=== PATIENT | female | born 1995 | race Caucasian/White ===

== ENCOUNTER 2020-01-15 20:17 | Emergency (ER) | payer SELFPAY ==
[~2020-01-15] VITALS: Ht 170.1 cm; Wt 71.2 kg
--- NOTE | 2020-01-15 20:32 | ED EENT ---
History of Present Illness General Stated Complaint: JAW LOCKED Source: patient, family History of Present Illness Date Seen by Provider: Jan 15, 2020 Time Seen by Provider: 20:23 Initial Comments 24-year-old female presents with a jaw dislocation. Patient has had recurrent jaw dislocation. Patient last ate around 6:30. She did have a Erika. Patient has no injury that causes acutely. Patient has no issues with allergies or anesthesia. Prearrival Treatment: no prearrival treatment Allergies and Home Medications Allergies Coded Allergies: No Known Drug Allergies (Unverified , 01/15/20) Patient Home Medication List Home Medication List Reviewed: Yes Review of Systems Review of Systems Constitutional: no symptoms reported Eyes: No Symptoms Reported Mouth: see HPI Throat: no symptoms reported Respiratory: no symptoms reported Cardiovascular: no symptoms reported Gastrointestinal: no symptoms reported : No Past Xkesfni-Rblemb-Hjlobu Hx Past Med/Social Hx: Reviewed Nursing Past Med/Soc Hx Patient Social History Recent Foreign Travel: No Contact w/Someone Who Travel: No Physical Exam Height, Weight, BMI Height: '" Weight: lbs. oz. kg; BMI Method: General Appearance: no apparent distress Mouth/Throat: other (patient with obvious jaw dislocation) Neck: supple Cardiovascular: normal peripheral pulses, regular rate, rhythm Respiratory: chest non-tender, lungs clear, normal breath sounds, no respiratory distress Gastrointestinal: non tender, soft Neurologic/Psychiatric: alert, normal mood/affect, oriented x 3 Skin: normal color, warm/dry Procedures/Interventions Patient Education: Explained Benefits Agreement on procedure with pt: Yes Breath Sounds per Auscultation: Clear Heart Sounds per Auscultation: Regular Airway Exam: Mouth opens >2 fingers, Neck Full Range of Motion, Visulation of Uvula Splinting and Joint Reduction : Pre-Proc Neuro Vasc Exam: normal Post-Proc Neuro Vasc Exam: normal Progress Jaw reduction Pre-Procedure NV Exam: Yes post joint reduction film: joint reduced Progress Patient tolerated procedure well. A c-collar was placed to help hold her jaw. Cervical Collars: [place]-Adult Progress/Results/Core Measures Results/Orders My Orders Orders - OWEN ARELLANO DO Ketamine Syringe (Ed Only) (Ketamine Syr (01/15/20 20:45) Conscious Sedation (01/15/20 20:33) Monitor-Rhythm Ecg Trace Only (01/15/20 20:33) Ed Iv/Invasive Line Start (01/15/20 20:33) Vital Signs-Conscious Sedation (01/15/20 20:33) Ketamine Syringe (Ed Only) (Ketamine Syr (01/15/20 20:45) Ed Iv/Invasive Line Start (01/15/20 20:34) Ns Iv 500 Ml (Sodium Chloride 0.9%) (01/15/20 20:38) Lorazepam Injection (Ativan Injection) (01/15/20 21:00) Lorazepam Injection (Ativan Injection) (01/15/20 20:49) Medications Given in ED Current Medications Medications Dose Ordered Sig/Ayaka Route Start Time Stop Time Status Last Admin Dose Admin Ketamine HCl 50 mg ONCE ONCE IV 01/15/20 20:45 01/15/20 20:46 DC 01/15/20 20:47 50 MG Lorazepam 0.5 mg ONCE ONCE IVP 01/15/20 21:00 01/15/20 21:01 01/15/20 20:54 0.5 MG Progress Progress Note : Time: 20:56 Progress Note Patient tolerated procedure well. No difficulties with reduction of jaw. Patient placed in c-collar as requested prior since he said that help it stay and is more comfortable than a wrap. Patient tolerated conscious sedation with no difficulty. She will be discharged home in stable condition in a c-collar. Departure Impression Primary Impression: Dislocation, jaw, open Qualified Codes: S03.00XA - Dislocation of jaw, unspecified side, initial encounter; S01.80XA - Unspecified open wound of other part of head, initial encounter Disposition: HOME, SELF-CARE Condition: Stable Departure-Patient Inst. Patient Instructions: Dislocated Jaw, Dislocated Jaw (DC) Add. Discharge Instructions: please where c collar until seen by ent.. Follow up with ENT neck week OWEN ARELLANO DO Jan 15, 2020 20:32
[2020-01-15] MEDS ORDERED: NS IV 500 ML 500 ML ONE (20:38)
[2020-01-15] MEDS ORDERED: KETAMINE/NaCl 50 MG/5 ML SYRINGE (ED ONLY) IV ONE ×2 (20:45)
[2020-01-15] MEDS ORDERED: LORazepam INJ 2 MG/ML (ATIVAN) VIAL ONE (20:49)
[2020-01-15] MEDS ORDERED: LORazepam INJ 2 MG/ML (ATIVAN) VIAL IVP ONE (21:00)
[2020-01-15 21:32] VITALS: BP 130/71
--- OUTSIDE RECORDS SUMMARY | 2020-01-17 15:46 | XMS REPORT | Continuity of Care Document ---
Author Organization Unknown Address Unknown Phone Unavailable Allergies There is no data. Medications There is no data. Problems There is no data. Procedures There is no data. Results Test Result Range SUREPATH PAP RFX HPV mRNA E6/E7 - 09:38 CLINICAL INFORMATION: NRG LMP: 10/03/2017 NRG PREV. PAP: NRG PREV. BX: NRG SOURCE: NRG STATEMENT OF ADEQUACY: NRG INTERPRETATION/RESULT: NRG HAUL DRIVER: NRG COMMENT NRG Encounters ACCT No. Visit Date/Time Discharge Status Pt. Type Provider Facility Loc./Unit Complaint [id number] 05/05/2019 09:00:00 05/05/2019 23:59: 59 [facility] Outpatient KELSEY YATES L[facility] [place] [facility] [id number] 05/05/2019 09:00:00 Document Registration
--- OUTSIDE RECORDS SUMMARY | 2020-01-17 15:46 | XMS REPORT ---
Author Author Davy MILLER [facility] Address [address] [place] [address] Care Team Providers Care Carton Machine Operator Name Role Phone DELANEY MILLER Unavailable PROBLEMS Type Condition ICD9-CM Code IHO10-UW Code Onset Dates Condition S tatus SNOMED Code Problem External hemorrhoid K64.4 Apr, 0 05703000 Problem Chronic diarrhea K52.9 Jan, 0 873393269 Problem Chronic diarrhea 787.91 Jan, 0 901433666 Problem Routine follow-up V24.2 Aug, 8 0 855009258 Problem Routine follow-up Z39.2 Aug, 8 0 412665636 Problem Abdominal cramping R10.9 Jan, 0 81137433 Problem Abdominal cramping 789.00 Jan, 0 64172747 Problem External hemorrhoid 455.3 Apr, 0 08805680 ALLERGIES No Information ENCOUNTERS Encounter Location Date Diagnosis [address] [id number] May, [address] [address] Feb, Encounter for Depo-Provera contraception Z30.[address] [address] Jan, [facility] [address] [facility] [id number] [address] [place] [id number] Oct, [facility] [address] [facility] [id number] [address] [place] [id number] Aug, [facility] [address] [facility] [id number] [address] [place] [id number] Jul, [facility] [address] [facility] [id number] [address] [place] [phone] March, IMMUNIZATIONS No Known Immunizations SOCIAL HISTORY Never Assessed REASON FOR VISIT Request return call PLAN OF CARE VITAL SIGNS MEDICATIONS Unknown Medications RESULTS No Results PROCEDURES No Known procedures INSTRUCTIONS MEDICATIONS ADMINISTERED No Known Medications
== END 2020-01-15 21:32 | disposition home or self-care (01) ==
LOC: ER FS 20:19
DX: S03.00XA Dislocation of jaw, unspecified side, initial encounter (principal); S01.80XA Unspecified open wound of other part of head, initial encounter; X58.XXXA Exposure to other specified factors, initial encounter
CPT/HCPCS: 93041

== ENCOUNTER → 2020-06-09 | Outpatient (CLI) | payer MEDICAID ==
--- NOTE | 2020-06-09 18:54 | Diagnostic Imaging Report ---
INDICATION: Dislocation of right temporomandibular joint 2 weeks ago. COMPARISON: None TECHNIQUE: 3 views of the facial bones FINDINGS: Alignment of the mandible appears normal. No fracture is seen in the imaged facial bones. No fluid levels are seen in the maxillary sinuses. Please note that CT would be more sensitive to evaluate for facial fractures. IMPRESSION: 1. No fracture or malalignment seen in the facial bones. Dictated by: Dictated on workstation # [id number]
== END ==
LOC: RAD FS 17:53
PROVIDERS: ATTEND Nurse Practitioner
DX: S03.00XA Dislocation of jaw, unspecified side, initial encounter (principal); X58.XXXA Exposure to other specified factors, initial encounter
CPT/HCPCS: 70150

== ENCOUNTER → 2020-11-30 | Outpatient (CLI) | payer MEDICAID ==
[2020-11-30 11:51] LABS: WHITE BLOOD COUNT 10.2 10^3/uL (4.3-11.0)
[2020-11-30 11:52] LABS: BASOPHILS # (AUTO) 0.1 10^3/uL (0.0-0.1); BASOPHILS % (AUTO) 1 % (0-10); EOSINOPHILS # (AUTO) 0.1 10^3/uL (0.0-0.3); EOSINOPHILS % (AUTO) 1 % (0-10); HEMATOCRIT 38 % (35-52); HEMOGLOBIN 12.9 G/DL (11.5-16.0); LYMPHOCYTES # (AUTO) 1.7 X 10^3 (1.0-4.0); LYMPHOCYTES % (AUTO) 16 % (12-44); MEAN CORPUSCULAR HEMOGLOBIN 30 PG (25-34); MEAN CORPUSCULAR HGB CONC 34 G/DL (32-36); MEAN CORPUSCULAR VOLUME 90 FL (80-99); MEAN PLATELET VOLUME 9.3 FL (7.4-10.4); MONOCYTES # (AUTO) 0.7 X 10^3 (0.0-1.0); MONOCYTES % (AUTO) 7 % (0-12); NEUTROPHILS # (AUTO) 7.7 X 10^3 (1.8-7.8); NEUTROPHILS % (AUTO) 75 % (42-75); PLATELET COUNT 284 10^3/uL (130-400)
== END ==
LOC: LAB FS 11:05
PROVIDERS: ATTEND Family Medicine
DX: Z34.81 Encounter for supervision of other normal pregnancy, first trimester (principal); Z3A.00 Weeks of gestation of pregnancy not specified
CPT/HCPCS: 36415; 85025; 86703; 86762; 86780; 86850; 86900; 86901; 87077; 87088; 87340

== ENCOUNTER → 2021-01-24 | Outpatient (CLI) | payer MEDICAID ==
[2021-01-24 15:49] LABS: AMPHETAMINE SCREEN, URINE NEGATIVE (NEGATIVE); BENZODIAZEPINES SCREEN URINE NEGATIVE (NEGATIVE); CANNABINOID SCREEN, URINE POSITIVE (NEGATIVE); COCAINE SCREEN URINE NEGATIVE (NEGATIVE); METHAMPHETAMINE SCREEN URINE S NEGATIVE (NEGATIVE); OPIATE SCREEN URINE NEGATIVE (NEGATIVE)
[2021-01-24 15:50] LABS: BARBITURATE SCREEN URINE NEGATIVE (NEGATIVE); METHADONE STAT NEGATIVE (NEGATIVE); OXYCODONE STAT NEGATIVE (NEGATIVE); PROPOXYPHENE STAT NEGATIVE (NEGATIVE); TRICYCLIC ANTIDEPRESSANTS SCRE NEGATIVE (NEGATIVE)
== END ==
LOC: LAB FS 15:16
PROVIDERS: ATTEND Family Medicine
DX: Z34.81 Encounter for supervision of other normal pregnancy, first trimester (principal); Z3A.00 Weeks of gestation of pregnancy not specified
CPT/HCPCS: 36415; 80306; 82105; 82677; 84702; 86336

== ENCOUNTER 2021-01-29 11:45 | Emergency (ER) | payer MEDICAID ==
[~2021-01-29] VITALS: Ht 170.1 cm; Wt 71.2 kg
[2021-01-29 12:42] LABS: BACTERIA,URINE TRACE /HPF; BILIRUBIN,URINE NEGATIVE (NEGATIVE); CLARITY,URINE CLEAR; COLOR,URINE YELLOW; GLUCOSE, URINE (UA) NEGATIVE (NEGATIVE); KETONES,URINE NEGATIVE (NEGATIVE); LEUKOCYTE ESTERASE ,URINE NEGATIVE (NEGATIVE); NITRITE,URINE NEGATIVE (NEGATIVE); PROTEIN,URINE NEGATIVE (NEGATIVE); RBC,URINE 0-2 /HPF
[2021-01-29] MEDS ORDERED: NS IV 1000 ML 1,000 ML IV SCH (12:45)
[2021-01-29 13:03] LABS: HEMOGLOBIN 12.4 G/DL (11.5-16.0); MEAN PLATELET VOLUME 9.1 FL (7.4-10.4); WHITE BLOOD COUNT 9.8 10^3/uL (4.3-11.0)
[2021-01-29 13:23] LABS: CARBON DIOXIDE 24 MMOL/L (21-32); CHLORIDE 103 MMOL/L (98-107); SODIUM 137 MMOL/L (135-145)
[2021-01-29 13:24] LABS: ALANINE AMINOTRANSFERASE 11 U/L (0-55); ALKALINE PHOSPHATASE 59 U/L (40-136); BILIRUBIN,TOTAL 0.5 MG/DL (0.1-1.0); BUN/CREATININE RATIO 16; CALCIUM 9.3 MG/DL (8.5-10.1); CREATININE SERUM 0.69 MG/DL (0.60-1.30); GFR ESTIMATED > 60; GLUCOSE 84 MG/DL (70-105); TOTAL PROTEIN 6.8 GM/DL (6.4-8.2)
--- NOTE | 2021-01-29 13:37 | ED Syncope ---
General Chief Complaint: Dizziness/Syncope Stated Complaint: CRAMPING | LIGHT-HEADED | DIZZY Source of Information: Patient History of Present Illness Date Seen by Provider: Jan 29, 2021 Time Seen by Provider: 12:30 Initial Comments Patient is a 25-year-old, G4, P2, Ab1 female who is 18 weeks gestation today who presents with near syncope while at work. Patient reports low blood pressure throughout . 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 Symptoms have since recovered. Blood sugar is 72. Patient does have history of hypoglycemia and a prior to driving to the emergency department. She denies headache, chest pain palpitations, nausea vomiting, abdominal pain, pelvic pain or cramping. No urinary frequency urgency or dysuria. No flank pain. No vaginal bleeding or fluid leakage. No other acute symptoms or complaints Timing/Prior Episodes: No Prior History Symptoms Prior to Episode: Other Precipitating Factors: Other Loss of Consciousness: Dazed Current Symptoms: Other Allergies and Home Medications Allergies Coded Allergies: No Known Drug Allergies (Unverified , 01/15/20) Patient Home Medication List Home Medication List Reviewed: Yes Review of Systems Constitutional: see HPI Respiratory: see HPI Cardiovascular: see HPI Gastrointestinal: see HPI Genitourinary: see HPI Musculoskeletal: see HPI Skin: see HPI Psychiatric/Neurological: See HPI All Other Systems Reviewed Negative Unless Noted: Yes Past Fydzvdq-Nchxku-Qqnwev Hx Past Med/Social Hx: Reviewed Nursing Past Med/Soc Hx Seasonal Allergies Seasonal Allergies: No Past Medical History Surgeries: No Respiratory: No Cardiac: No Neurological: No Genitourinary: No Gastrointestinal: No Musculoskeletal: Yes (Jaw Dislocation) Endocrine: No HEENT: No Cancer: No Psychosocial: No Integumentary: No Physical Exam Vital Signs Capillary Refill : Height, Weight, BMI Height: '" Weight: lbs. oz. kg; 24.00 BMI Method: General Appearance: No Apparent Distress, WD/WN HEENT: PERRL/EOMI, Normal ENT Inspection, Pharynx Normal Neck: Full Range of Motion, Normal Inspection Cardiovascular: Regular Rate, Rhythm Respiratory: Chest Non Tender, Lungs Clear Neurologic/Psychiatric: Alert, Oriented x3, No Motor/Sensory Deficits, rolled glass crosscutter II- XII Norm as Tested Cranial Nerves: Abnormal Eye Position Coordination/Gait: Normal Gait Focused Exam Sepsis Stage: Ruled Out Procedures/Interventions Patient Education: Explained Benefits Breath Sounds per Auscultation: Clear Heart Sounds per Auscultation: Regular Airway Exam: Mouth opens >2 fingers, Neck Full Range of Motion, Visulation of Uvula Progress/Results/Core Measures Results/Orders Lab Results Laboratory Tests Test 01/29/21 12:00 01/29/21 12:11 01/29/21 12:58 Range/Units Urine Color YELLOW Urine Clarity CLEAR Urine pH 7.0 5-9 Urine Specific [place] 1.0010 1.016-1.022 Urine Protein NEGATIVE NEGATIVE Urine Glucose (UA) NEGATIVE NEGATIVE Urine Ketones NEGATIVE NEGATIVE Urine Nitrite NEGATIVE NEGATIVE Urine Bilirubin NEGATIVE NEGATIVE Urine Urobilinogen 0.2 < = 1.0 MG/DL Urine Leukocyte Esterase NEGATIVE NEGATIVE Urine RBC (Auto) TRACE-I NEGATIVE Urine RBC 0-2 /HPF Urine WBC NONE /HPF Urine Squamous Epithelial Cells 2-5 /HPF Urine Crystals NONE /LPF Urine Bacteria TRACE /HPF Urine Casts NONE /LPF Urine Mucus SMALL H /LPF Urine Culture Indicated NO Glucometer 72 70-110 MG/DL White Blood Count 9.8 4.3-11.0 10^3/uL Red Blood Count 4.05 L 4.35-5.85 10^6/uL Hemoglobin 12.4 11.5-16.0 G/DL Hematocrit 37 35-52 % Mean Corpuscular Volume 90 80-99 FL Mean Corpuscular Hemoglobin 31 25-34 PG Mean Corpuscular Hemoglobin Concent 34 32-36 G/DL Red Cell Distribution Width 12.6 10.0-14.5 % Platelet Count 261 130-400 10^3/uL Mean Platelet Volume 9.1 7.4-10.4 FL Sodium Level 137 135-145 MMOL/L Potassium Level 4.0 3.6-5.0 MMOL/L Chloride Level 103 98-107 MMOL/L Carbon Dioxide Level 24 21-32 MMOL/L Anion Gap 10 5-14 MMOL/L Blood Urea Nitrogen 11 7-18 MG/DL Creatinine 0.69 0.60-1.30 MG/DL Estimat Glomerular Filtration Rate > 60 BUN/Creatinine Ratio 16 Glucose Level 84 70-105 MG/DL Calcium Level 9.3 8.5-10.1 MG/DL Corrected Calcium 9.3 8.5-10.1 MG/DL Total Bilirubin 0.5 0.1-1.0 MG/DL Aspartate Amino Transf (AST/SGOT) 14 5-34 U/L Alanine Aminotransferase (ALT/SGPT) 11 0-55 U/L Alkaline Phosphatase 59 40-136 U/L Total Protein 6.8 6.4-8.2 GM/DL Albumin 4.0 3.2-4.5 GM/DL My Orders Orders - TIMMY BULL DO Cbc No Diff (01/29/21 12:39) Comprehensive Metabolic Panel (01/29/21 12:39) Ekg-Prn For Chest Pain Or Rhyt (01/29/21 12:39) Heart Tones (01/29/21 12:39) Urinalysis (01/29/21 12:39) Ns Iv 1000 Ml (Sodium Chloride 0.9%) (01/29/21 12:45) Departure Communication (Admissions) EKG, labs reviewed. No acute findings. heart tones 140s. IV fluids given. Patient tolerates oral intake. Symptoms improved. Suspect hypertensive state with orthostasis secondary to . Patient is comfortable with discharge home. Impression Primary Impression: Dizziness Additional Impressions: Orthostatic dizziness Second trimester Disposition: 01 HOME, SELF-CARE Condition: Stable Departure-Patient Inst. Referrals: CHANDRAKANT LUGO MD (PCP/Family) Primary Care Physician Patient Instructions: Orthostatic Hypotension (DC) Add. Discharge Instructions: Please stay home and rest. Increase fluids and follow-up with your SHEET ROCK SANDER as scheduled. Return to the ED if new or worsening symptoms. All discharge instructions reviewed with patient and/or family. Voiced understanding. Work/School Note: Work Release Form Date Seen in the Emergency Department: Jan 29, 2021 Return to Work: Jan 31, 2021 Restrictions: No Restrictions TIMMY BULL DO Jan 29, 2021 13:37
[2021-01-29 13:59] VITALS: BP 126/71
== END 2021-01-29 13:59 | disposition home or self-care (01) ==
LOC: EDUNIT# 11:45 → ER FS 11:47
DX: O26.52 Maternal hypotension syndrome, second trimester (principal); Z3A.18 18 weeks gestation of pregnancy
CPT/HCPCS: 36415; 80053; 81000; 82962; 85027

== ENCOUNTER → 2021-02-13 | Outpatient (CLI) | payer MEDICAID ==
--- NOTE | 2021-02-13 10:28 | Diagnostic Imaging Report ---
INDICATION: survey. TECHNIQUE: Multiple real-time grayscale images were obtained over the gravid uterus. COMPARISON: None FINDINGS: There is a single live fetus in a cephalic presentation. heart rate was recorded at 140 bpm. Placenta is posterior. No previa is seen. Amniotic fluid volume is normal. Cervical length is 3.7 cm. kidneys, bladder and stomach are unremarkable. brain is unremarkable. There is a 4 chamber heart. There is a 3 vessel cord and normal insertion. spine is unremarkable. Biometrical measurements are as follows: Biparietal 4.92 cm, age 21 weeks 0 days. Head circumference 17.74 cm, age 20 weeks 2 days. Abdominal circumference 14.71 cm, age 20 weeks 0 days. Femur length 3.19 cm, age 20 weeks 0 days. Sonographic estimate age: 20 weeks 3 days. Sonographic estimated date of delivery: 06/30/2021. Estimated Weight: 327 gm (+/- 48 gm). LMP percentile: 39%. heart rate: 140 beats per minute. number: 1 of 1. IMPRESSION: Single live IUP 20 weeks 3 days gestational age. Estimated date of confinement sonographic is 06/30/2021. Dictated by: Dictated on workstation # [id number]
== END ==
LOC: RAD FS 08:50
PROVIDERS: ATTEND Family Medicine
DX: Z34.82 Encounter for supervision of other normal pregnancy, second trimester (principal); Z3A.20 20 weeks gestation of pregnancy
CPT/HCPCS: 76805

== ENCOUNTER → 2021-03-21 | Outpatient (CLI) | payer MEDICAID | LOC: LABNPT 14:53 | PROVIDERS: ATTEND Family Medicine | DX: R10.2 Pelvic and perineal pain (principal) | CPT/HCPCS: 87210; 87491; 87591 ==

== ENCOUNTER → 2021-04-07 | Outpatient (CLI) | payer MEDICAID | LOC: LABNPT 16:02 | PROVIDERS: ATTEND Family Medicine | DX: N89.8 Other specified noninflammatory disorders of vagina (principal) | CPT/HCPCS: 87210; 87491; 87591 ==

== ENCOUNTER → 2021-04-07 | Outpatient (CLI) | payer MEDICAID ==
[2021-04-07 09:53] LABS: HEMOGLOBIN 11.5 G/DL (11.5-16.0); MEAN CORPUSCULAR HEMOGLOBIN 32 PG (25-34); WHITE BLOOD COUNT 8.2 10^3/uL (4.3-11.0)
[2021-04-07 09:54] LABS: BASOPHILS % (AUTO) 0 % (0-10); EOSINOPHILS # (AUTO) 0.1 10^3/uL (0.0-0.3); EOSINOPHILS % (AUTO) 1 % (0-10); HEMATOCRIT 35 % (35-52); LYMPHOCYTES # (AUTO) 1.2 X 10^3 (1.0-4.0); LYMPHOCYTES % (AUTO) 15 % (12-44); MEAN CORPUSCULAR HGB CONC 33 G/DL (32-36); MEAN CORPUSCULAR VOLUME 95 FL (80-99); MEAN PLATELET VOLUME 9.6 FL (7.4-10.4); MONOCYTES # (AUTO) 0.6 X 10^3 (0.0-1.0); MONOCYTES % (AUTO) 7 % (0-12); NEUTROPHILS # (AUTO) 6.3 X 10^3 (1.8-7.8); NEUTROPHILS % (AUTO) 77 % (42-75); PLATELET COUNT 219 10^3/uL (130-400)
== END ==
LOC: LAB FS 09:18
PROVIDERS: ATTEND Family Medicine
DX: Z34.81 Encounter for supervision of other normal pregnancy, first trimester (principal); Z3A.00 Weeks of gestation of pregnancy not specified
CPT/HCPCS: 36415; 82950; 85025; 86592

== ENCOUNTER 2021-05-01 17:23 | Observation (INO) | payer MEDICAID ==
[~2021-05-01] VITALS: Ht 170.2 cm; Wt 82.6 kg
[2021-05-01 17:52] VITALS: BP 127/69
[2021-05-01] MEDS ORDERED: PREN-37 PO (17:57)
[2021-05-01] MEDS ORDERED: VALA500T4 PO (17:58)
[2021-05-01 19:41] VITALS: BP 126/66
[2021-05-01] MEDS ORDERED: NS IV 1000 ML 1,000 ML ONE (20:18)
[2021-05-01] MEDS ORDERED: BETAMETHASONE ACE/NA PHOS 6 MG/ML (CELESTONE SOLUSPAN) ONE (20:38)
[2021-05-01] MEDS ORDERED: D5 LR IV SOLUTION 1,000 ML IV ONE (20:38)
[2021-05-01] MEDS ORDERED: NS IV 1000 ML 1,000 ML IV SCH (20:45)
[2021-05-01] MEDS: D5 LR IV SOLUTION 1,000 ML IV SCH (22:24)
[2021-05-02 00:22] VITALS: BP 120/72
[2021-05-02] MEDS: D5 LR IV SOLUTION 1,000 ML IV SCH (06:18)
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
--- NOTE | 2021-05-02 09:44 | Diagnostic Imaging Report ---
TIME OF STUDY: 05/02/2021 8:59 AM INDICATION: Abdominal trauma. Evaluate for abruption. COMPARISON: 02/13/2021 TECHNIQUE: Transabdominal sonogram was performed. GESTATIONAL AGE: 31 weeks, 2 days GENERAL EVALUATION: Presentation: Cephalic Placenta: Posterior and not low lying. No findings to suggest abruption. Cardiac activity: 125 bpm Amniotic fluid index: The total VERNELL is 13.3 cm. The largest vertical pocket measures 7.0 cm. Views of the adnexa demonstrate no acute abnormalities. BIOPHYSICAL PROFILE SCORING: tone: 2 movement: 2 breathin Amniotic fluid: 2 TOTAL SCORE: 6 out of 8 FINDINGS/ IMPRESSION: 1. Single live intrauterine gestation with biophysical profile score of 6 out of 8, with 0 points given for breathing movements. The fetus was noted taking small breaths of air without episodes lasting greater than 30 seconds. 2. No sonographic evidence of placental abruption. Dictated by: Dictated on workstation # [id number]
[2021-05-02 10:40] VITALS: BP 110/57
[2021-05-02] MEDS ORDERED: BETAMETHASONE ACE/NA PHOS 6 MG/ML (CELESTONE SOLUSPAN) IM SCH (21:00)
== END 2021-05-02 11:02 | disposition home or self-care (01) ==
LOC: WSo 17:23 → LDRP 17:23 → WSo 05-02 09:43 → LDRP 05-02 09:43 → UNDOADMOB 05-02 09:44 → WSo 05-02 11:02 → UNDODISOB 05-02 11:02 → EDSTATUS 05-10 16:23
PROVIDERS: ADMIT Obstetrics & Gynecology; ATTEND Obstetrics & Gynecology
DX: O9A.213 Injury, poisoning and certain other consequences of external causes complicating pregnancy, third trimester (principal); S39.91XA Unspecified injury of abdomen, initial encounter; Z3A.31 31 weeks gestation of pregnancy; W03.XXXA Other fall on same level due to collision with another person, initial encounter; Z79.899 Other long term (current) drug therapy
CPT/HCPCS: 76819; 86850; 86900; 86901; 96360; 96361 ×2; 96372; G0378; G0379; 99211

== ENCOUNTER 2021-05-02 19:55 | Outpatient (CLI) | payer MEDICAID ==
[~2021-05-02 19:55] MED LIST: PREN-37 PO; VALA500T4 PO
[2021-05-02] MEDS ORDERED: BETAMETHASONE ACE/NA PHOS 6 MG/ML (CELESTONE SOLUSPAN) ONE (20:09)
[2021-05-02] MEDS ORDERED: BETAMETHASONE ACE/NA PHOS 6 MG/ML (CELESTONE SOLUSPAN) IM SCH (20:15)
--- NOTE | 2021-05-03 07:40 | Physician Query-Final Dx ---
SUNIL GRANADOS 05/03/21 0740: Clinic Account Progress/Dx Physician Query: Please give diagnosis Please include # weeks gestation Date of Service May 02, 2021 at 19:55 CA LEON DO 05/03/21 1315: Clinic Account Progress/Dx DIAGNOSIS: Diagnosis 26 yo @ 31 weeks Trauma to abdomen in Irregular contractions- resolved Rh+ SUNIL GRANADOS May 03, 2021 07:40 CA LEON DO May 03, 2021 13:15
== END 2021-05-02 20:20 ==
LOC: WSo 19:55 → LDRP 19:58 → WSo 20:20
PROVIDERS: ATTEND Obstetrics & Gynecology
DX: O60.03 Preterm labor without delivery, third trimester (principal); O9A.213 Injury, poisoning and certain other consequences of external causes complicating pregnancy, third trimester; O62.9 Abnormality of forces of labor, unspecified; Z3A.31 31 weeks gestation of pregnancy
CPT/HCPCS: 96372

== ENCOUNTER 2021-09-29 16:35 | Emergency (ER) | payer MEDICAID ==
[~2021-09-29] VITALS: Ht 170.2 cm; Wt 74.0 kg
[2021-09-29 16:50] VITALS: BP 123/60
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
== END 2021-09-29 16:57 | disposition home or self-care (01) ==
LOC: EDUNIT# 16:35 → ER FS 16:36
DX: S00.03XA Contusion of scalp, initial encounter (principal); S00.83XA Contusion of other part of head, initial encounter; S50.311A Abrasion of right elbow, initial encounter; S09.90XA Unspecified injury of head, initial encounter; T74.11XA Adult physical abuse, confirmed, initial encounter; R40.2410 Glasgow coma scale score 13-15, unspecified time; Y04.2XXA Assault by strike against or bumped into by another person, initial encounter
CPT/HCPCS: 99281

== ENCOUNTER → 2022-03-05 | Outpatient (CLI) | payer MEDICAID | LOC: LABNPT 15:04 | PROVIDERS: ATTEND Registered Nurse Emergency | DX: J30.2 Other seasonal allergic rhinitis (principal) | CPT/HCPCS: 87070 ==

== ENCOUNTER → 2022-03-19 | Outpatient (CLI) | payer MEDICAID | LOC: LABNPT 16:19 | PROVIDERS: ATTEND Family Medicine | DX: R42 Dizziness and giddiness (principal); R25.1 Tremor, unspecified | CPT/HCPCS: 87088 ==

== ENCOUNTER → 2022-03-20 | Outpatient (CLI) | payer MEDICAID ==
[2022-03-20 13:45] LABS: BASOPHILS # (AUTO) 0.1 10^3/uL (0.0-0.1); BASOPHILS % (AUTO) 1 % (0-10); EOSINOPHILS # (AUTO) 0.1 10^3/uL (0.0-0.3); EOSINOPHILS % (AUTO) 2 % (0-10); HEMATOCRIT 43 % (35-52); HEMOGLOBIN 14.3 g/dL (11.5-16.0); LYMPHOCYTES # (AUTO) 2.5 10^3/uL (1.0-4.0); LYMPHOCYTES % (AUTO) 30 % (12-44); MEAN CORPUSCULAR HEMOGLOBIN 30 pg (25-34); MEAN CORPUSCULAR HGB CONC 34 g/dL (32-36); MEAN CORPUSCULAR VOLUME 89 fL (80-99); MEAN PLATELET VOLUME 9.1 fL (9.0-12.2); MONOCYTES # (AUTO) 0.5 10^3/uL (0.0-1.0); MONOCYTES % (AUTO) 6 % (0-12); NEUTROPHILS # (AUTO) 5.2 10^3/uL (1.8-7.8); NEUTROPHILS % (AUTO) 62 % (42-75); PLATELET COUNT 215 10^3/uL (130-400); WHITE BLOOD COUNT 8.5 10^3/uL (4.3-11.0)
[2022-03-20 14:30] LABS: ALBUMIN 4.4 GM/DL (3.2-4.5); BILIRUBIN,TOTAL 1.4 MG/DL (0.1-1.0); CALCIUM 9.2 MG/DL (8.5-10.1); CREATININE SERUM 0.86 MG/DL (0.60-1.30); POTASSIUM 4.1 MMOL/L (3.6-5.0); TOTAL PROTEIN 7.2 GM/DL (6.4-8.2)
[2022-03-21 04:44] LABS: FREE T4 (FREE THYROXINE) 0.97 NG/DL (0.70-1.48)
== END ==
LOC: LAB FS 13:22
PROVIDERS: ATTEND Family Medicine
DX: R42 Dizziness and giddiness (principal); R25.1 Tremor, unspecified
CPT/HCPCS: 36415; 80053; 84439; 84443; 85025

== ENCOUNTER → 2022-03-26 | Outpatient (CLI) | payer MEDICAID ==
--- NOTE | 2022-03-26 07:56 | Diagnostic Imaging Report ---
PROCEDURE: US Hepatic (Liver). TECHNIQUE: Multiple real-time grayscale images were obtained over the right upper quadrant in various projections. INDICATION: Elevated bilirubin. FINDINGS: The liver is normal in size without focal lesions. There is hepatopetal flow in main portal vein. There is no biliary duct dilatation. Common bile duct measures 3 mm. There is no cholelithiasis, gallbladder wall thickening or pericholecystic fluid. Aorta is nonaneurysmal. IVC is patent. Right kidney is normal. No ascites. IMPRESSION: Unremarkable right upper quadrant ultrasound. Dictated by: Dictated on workstation # [id number]
== END ==
LOC: RAD 07:07
PROVIDERS: ATTEND Family Medicine
DX: R17 Unspecified jaundice (principal)
CPT/HCPCS: 76705

== ENCOUNTER → 2022-04-30 | Outpatient (CLI) | payer MEDICAID | LOC: LABNPT 14:46 | PROVIDERS: ATTEND Family Medicine | DX: J06.9 Acute upper respiratory infection, unspecified (principal); Z20.822 Contact with and (suspected) exposure to COVID-19 | CPT/HCPCS: 87636 ==

== ENCOUNTER 2023-09-06 11:19 | Emergency (ER) | payer MEDICAID ==
[~2023-09-06] VITALS: Ht 170 cm; Wt 76.3 kg
--- NOTE | 2023-09-06 11:48 | ED General ---
General Chief Complaint: General Problems/Pain Stated Complaint: JAW STUCK OPEN Nursing Triage Note: Pt presents to ER with complaints of "jaw stuck open". Pt reports hx of TMJ with similar symptoms in the past. Reports onset of symptoms approximately 30 minutes [employer]ICAL [employer]INE [employer] Source of Information: Patient Exam Limitations: No Limitations History of Present Illness Date Seen by Provider: Sep 06, 2023 Time Seen by Provider: 11:30 Initial Comments 28-year-old female presents to the ER complaining that her jaw is stuck open. She has a history of jaw dislocation 3 times previously. She has been reduced by varying methods in the past. This happened just prior to arrival. Her pain is moderate in severity. She has not seen any kind of maxillofacial surgeon or specialist regarding her condition but does report that she has a history of TMJ. She reports dislocations happen on the right side. Allergies and Home Medications Allergies Coded Allergies: No Known Drug Allergies (Unverified , 01/15/20) Patient Home Medication List Home Medication List Reviewed: Yes Vit/Iron Fumarate/FA ( Tablet) 1 Each Tablet, 1 EACH PO DAILY, (Reported) Entered as Reported by: SAIDA VILLAGRAN on 05/01/211756 Valacyclovir HCl (Valtrex) 500 Mg Tablet, 500 MG PO DAILY, (Reported) Entered as Reported by: SAIDA VILLAGRAN on 05/01/211757 Review of Systems Review of Systems Constitutional: see HPI (All other systems negative except as documented in HPI.) Past Jdjqmjl-Oevjwp-Immulz Hx Immunizations Up To Date Influenza Vaccine Up-to-Date: No; Not Current Seasonal Allergies Seasonal Allergies: No Past Medical History Surgery/Hospitalization HX: TMJ, fallopian tube removal Surgeries: No Respiratory: No Cardiac: No Neurological: No Genitourinary: No Gastrointestinal: No Musculoskeletal: Yes (Jaw Dislocation) Endocrine: No (Hypoglycemia) HEENT: No Cancer: No Psychosocial: Yes Anxiety Integumentary: No Physical Exam Vital Signs Vital Signs - First Documented 09/06/23 11:25 Temp 37.2 Pulse 105 Resp 18 B/P (MAP) 138/76 (96) Pulse Ox 100 O2 Delivery Room Air Capillary Refill : Less Than 3 Seconds Height, Weight, BMI Height: '" Weight: lbs. oz. kg; 26.00 BMI Method: General Appearance: WD/WN Eyes: Bilateral Eye Normal Inspection, Bilateral Eye PERRL, Bilateral Eye EOMI HEENT: PERRL/EOMI, TMs Normal, Pharynx Normal, Other (Patient's mouth is stuck open. Unable to close.) Neck: Full Range of Motion, Normal Inspection, Non Tender, Supple, Carotid Bruit Respiratory: Chest Non Tender, Lungs Clear, Normal Breath Sounds, No Accessory Muscle Use, No Respiratory Distress Cardiovascular: Regular Rate, Rhythm, No Edema, No Gallop, No JVD, No Murmur, Normal Peripheral Pulses Gastrointestinal: Normal Bowel Sounds, No Organomegaly, No Pulsatile Mass, Non Tender, Soft Back: Normal Inspection, No CVA Tenderness, No Vertebral Tenderness Extremity: Normal Capillary Refill, Normal Inspection, Normal Range of Motion, Non Tender, No Calf Tenderness, No Pedal Edema Neurologic/Psychiatric: Alert, Oriented x3, No Motor/Sensory Deficits, Normal Mood/Affect Skin: Normal Color, Warm/Dry Lymphatic: No Adenopathy Procedures/Interventions Patient Education: Explained Benefits, Explained Risks, Pt. Ack. Understanding Agreement on procedure with pt: Yes Breath Sounds per Auscultation: Clear Heart Sounds per Auscultation: Regular Airway Exam: Mouth opens >2 fingers, Neck Full Range of Motion, Visulation of Uvula Total Time spent in CS 5 minutes Timeout performed by myself. Patient was monitored with internal CO2, pulse oximetry telemetry, and blood pressure monitoring. Patient given a total of 40 mg of propofol for mandibular dislocation. The mandible was then manipulated by myself and easily reduced. Patient tolerated well with good results. Neck brace placed after to prevent further dislocation. Patient should wear this for the next 24 hours. Progress/Results/Core Measures Suspected Sepsis SIRS Temperature: Pulse: 105 Respiratory Rate: 18 Blood Pressure 138 /76 Mean: 96 Results/Orders My Orders Orders - TAVARES SALEEM DO Ns Iv 1000 Ml (Ns Iv 1000 Ml) (09/06/23 12:15) Fentanyl Injection (Fentanyl Injection (09/06/23 12:15) Propofol Injection (Propofol Injection) (09/06/23 12:15) Fentanyl Injection (Fentanyl Injection (09/06/23 12:22) Propofol Injection (Propofol Injection) (09/06/23 12:22) Medications Given in ED Current Medications Medications Dose Ordered Sig/Ayaka Route Start Time Stop Time Status Last Admin Dose Admin Fentanyl Citrate 50 mcg ONCE ONCE IVP 09/06/23 12:15 09/06/23 12:16 DC 09/06/23 12:24 50 MCG Vital Signs/I&O 09/06/23 11:25 Temp 37.2 Pulse 105 Resp 18 B/P (MAP) 138/76 (96) Pulse Ox 100 O2 Delivery Room Air Capillary Refill : Less Than 3 Seconds Blood Pressure Mean: 96 Progress Note : Time: 12:52 Progress Note Patient's mandible reduced using conscious ideation. Good result achieved. Patient feeling much better. Will monitor postprocedure and discharge once cleared. Departure Impression Primary Impression: Dislocated mandible Disposition: HOME, SELF-CARE Condition: Stable Departure-Patient Inst. Decision time for Depature: 12:53 Referrals: ALOK RODRIGUEZ APRN (PCP) Primary Care Physician [facility] (Family) Primary Care Physician Patient Instructions: TMJ Exercises, Dislocated Jaw Add. Discharge Instructions: You should wear your neck brace for the next 24 hours to prevent repeat dislocation. All discharge instructions reviewed with patient and/or family. Voiced understanding. TAVARES SALEEM DO Sep 06, 2023 11:47
[2023-09-06] MEDS ORDERED: proPOfol INJECTION 200 MG/20 ML VIAL IV ONE ×2 (12:15→12:22)
[2023-09-06] MEDS ORDERED: NS IV 1000 ML 1,000 ML IV SCH (12:15)
[2023-09-06] MEDS ORDERED: fentaNYL INJECTION 100 MCG/2 ML VIAL IVP ONE (12:15)
[2023-09-06] MEDS ORDERED: fentaNYL INJECTION 100 MCG/2 ML VIAL ONE (12:22)
[2023-09-06 13:25] VITALS: BP 119/83
== END 2023-09-06 13:25 | disposition home or self-care (01) ==
LOC: EDUNIT# 11:19 → ER FS 11:22
DX: S03.01XA Dislocation of jaw, right side, initial encounter (principal); X58.XXXA Exposure to other specified factors, initial encounter
CPT/HCPCS: 93041; 96361; 96374; 96375